=== PATIENT | male | born 1935 | race Caucasian/White ===

== ENCOUNTER 2016-11-25 15:07 | Emergency (ER) | payer OTHER, MEDICARE ==
[2016-11-25 15:30] VITALS: RESP 16; O2SAT 98
--- NOTE | 2016-11-25 16:13 | EDPHY ---
H & P Smoking Status: Never smoked Time Seen by Provider: 11/25/16 15:57 HPI/ROS: HPI: 81-year-old pleasant male presents with Chief Complaint: Accidental fall Location: Tailbone Quality: Pain Duration: Yesterday afternoon Signs and Symptoms: No incontinence, no radiation, no weakness, no difficulty ambulating, no headache, no neck pain, no dizziness, no loss conscious Timing: Gradual onset Severity:mild Context: Patient reports that he was carrying a box of files up some stairs in which the weight distributed back and he lost his balance per approximately falling 3 steps down landing directly onto his buttocks. His head hit the door during the fall, no loss of consciousness, no headache, no nausea and vomiting. Patient went home, rested, and called his daughter who is a ACCOUNT MANAGEMENT ASSISTANT. She advised him to go to the hospital to get his neck and tailbone pain evaluated. He complains of continued tailbone pain without radiation, no incontinence, no dysuria. Denies neck pain to me. drove self to ER. Not on any blood thinners. Modifying Factors: Tylenol Comment: ROS: Eyes: No blurred vision Respiratory: No shortness of breath, no cough Cardiovascular: No chest pain Gastrointestinal: No nausea, no vomiting no diarrhea Genitourinary: No dysuria Extremities: No myalgias Neurologic: No weakness, no numbness Skin: No rashes Hematologic: No bruising, no bleeding MEDICAL/SURGICAL HISTORY: Bladder cancer. Does not take any regular medications. (Jyothi Vera) Social History: Lives by himself. Retired. (Jyothi Vera) Physical Exam: CONSTITUTIONAL: Pleasant extremely well-appearing talkative elderly white male , awake and alert, no obvious distress HEENT: Atraumatic and normocephalic, PERRL, EOMI. Tympanic membranes clear. . Oropharynx clear, no exudate and moist pink mucosa. Airway patent. NECK: Supple, full range of motion, no midline tenderness, No lymphadenopathy. No meningismus. Cardiovascular: Normal S1/S2, regular rate, regular rhythm, without murmur rub or gallop. PULMONARY/CHEST: Symmetrical and nontender. Clear to auscultation bilaterally Good air movement. No accessory muscle usage. ABDOMEN: Soft, nondistended, nontender, no rebound, no guarding, no peritoneal signs, no masses or organomegaly. No CVAT. EXTREMITIES: 2/2 pulses, no deformities, no clubbing, no cyanosis or edema. Bilateral health hips show relatively good flexion, internal rotation. mild pain with external rotation. BACK: Midline tailbone pain with palpation. No paraspinous muscle spasm. Deep tendon reflexes 2/2. NEUROLOGICAL: no focal neuro deficits. GCS 15. Walks with a slow gait. SKIN: Warm and dry, no erythema. no rash. Good capillary refill. (Jyothi Vera) Constitutional: Initial Vital Signs Temperature (C) 36.0 C 11/25/16 15:12 Heart Rate 90 11/25/16 15:12 Respiratory Rate 16 11/25/16 15:12 Blood Pressure 129/99 H 11/25/16 15:12 O2 Sat (%) 98 11/25/16 15:12 O2 Delivery Mode Room Air Allergies/Adverse Reactions: No Known Allergies Allergy (Unverified 11/25/16 15:11) Home Medications: Medication Instructions Recorded NK [No Known Home Meds] 11/25/16 Medical Decision Making - Diagnostics Imaging Results: Imaging Impressions Cervical Spine CT 11/25/16 16:08 Impression: Degenerative cervical spine disease. Nothing acute. Findings and recommendations discussed with Jyothi Vera PA-C at 1753 hours on November 25, 2016. Final report concurs with initial preliminary interpretation. Pelvis X-Ray 11/25/16 16:08 Impression: Negative for fracture. Sacrum and Coccyx X-Ray 11/25/16 16:08 Impression: Negative for fracture. ED Course/Re-evaluation: After much discussion and convincing on my part patient has agreed to CT cervical scan and sacral/coccyx/pelvic xray He is adamant that he does not had need a head CT scan. Fall accidental in nature Patient has politely declined any pain medications other than ibuprofen and Tylenol No signs of neurovascular compromise, bladder injury, dislocation, traumatic brain injury Signed out to Dr. Kapoor at 5:[address] cervical scan results. Suspect discharge home with supportive care. (Jyothi Vera) Differential Diagnosis: Fall in the elderly including but not limited to intracranial injury, long bone and pelvic bone fracture, spinal injury, and intrathoracic injury. (Jyothi Vera) Other Provider: PHYSICIAN DOCUMENTATION: The patient was evaluated and managed by the Physician Inspector [employer] and myself. I have reviewed the chart and agree with the findings and plan of care as documented. In addition, I examined the patient myself at 1752. History confirmed as mechanical fall without syncope. Physical findings as follows: No cervical spine tenderness, moving all 4 extremities normally. Cervical spine CT negative per Dr. Hernandez at 5:50 p.m.. Clinically cleared by myself at this time. Ambulatory in the emergency department. Requested ibuprofen but no narcotics. I am the secondary supervising physician. (Harjinder Kapoor) - Data Points Medications Given: Discontinued Medications Ibuprofen (Motrin) 600 mg PO EDNOW ONE Stop: 11/25/16 17:57 Last Admin: 11/25/16 18:06 Dose: Not Given Departure - Departure Disposition: Home, Routine, Self-Care Clinical Impression: Accidental fall Qualifiers: Encounter type: initial encounter Qualified Code(s): W19.XXXA - Unspecified fall, initial encounter Coccyx contusion Qualifiers: Encounter type: initial encounter Qualified Code(s): S30.0XXA - Contusion of lower back and pelvis, initial encounter Condition: Good Instructions: Coccyx Injury (ED) Additional Instructions: Take Tylenol and/or ibuprofen as needed for pain. Use a donut shaped cushion to decrease the pain of the tailbone injury. Make sure to avoid constipation by drinking plenty of fluids and taking stool softeners if needed. Referrals: POLO GARZA [Primary Care Provider] - 2-3 days, if not improved
[2016-11-25] MEDS ORDERED: IBUPROFEN 600 MG TAB PO ONE (17:56)
[2016-11-25 18:05] VITALS: BP 120/77; PULSE 99; TEMP 98.2
== END 2016-11-25 18:06 | disposition home or self-care (01) ==
DX: S30.0XXA Contusion of lower back and pelvis, initial encounter (principal); W10.9XXA Fall (on) (from) unspecified stairs and steps, initial encounter

== ENCOUNTER → 2018-06-14 | Outpatient (CLI) | payer OTHER, MEDICARE | LOC: BHFA 09:00 | PROVIDERS: ATTEND Internal Medicine Cardiovascular Disease | DX: R94.31 Abnormal electrocardiogram [ECG] [EKG] (principal); I25.10 Atherosclerotic heart disease of native coronary artery without angina pectoris | CPT/HCPCS: 78452; 93017; A9500 ==